=== PATIENT | female | born 1995 | race Caucasian/White ===

== ENCOUNTER 2023-10-19 21:14 | Observation (INO) | payer OTHER, SELFPAY ==
[2023-10-19 23:29] LABS: Bilirubin Negative (Negative); Blood, Urine Negative (Negative); CAUTI Indications for Culture Pelvic or flank pain; Calcium Oxalate Crystals 4+ HPF (None Seen); Clarity Turbid (Clear); Glucose, Urine (Dipstick) Normal (Negative); Ketone, Urine Negative (Negative); Leukocyte 75 Leu/uL (Negative); Nitrite Negative (Negative); Protein, Urine (Dipstick) 70 mg/dL (Neg-Trace); Specific Gravity, Urine 1.041 (1.002-1.036); WBC/HPF 21-50 HPF (0-3)
[2023-10-19 23:30] LABS: Bacteria/HPF 1+ HPF (None Seen)
[2023-10-19 23:32] LABS: Urine Culture Reflex Yes Yes
[2023-10-19] MEDS ORDERED: Dicyclomine 20 MG/2 ML VIAL ONE (23:36)
[2023-10-19 23:38] LABS: #Basophils 0.1 thou/uL (0.0-0.2); #Eosinphils 0.1 thou/uL (0.0-0.7); #Monocytes 0.4 thou/uL (0.11-0.59); #Neutrophils 9.6 thou/uL (1.40-6.50); %Basophils 0.5 % (0.0-1.0); %Eosinophils 0.6 % (0.0-10.0); %Lymphocytes 8.8 % (21.0-51.0); %Monocytes 3.4 % (0.0-10.0); %Neutrophils 86.5 % (42.0-75.0); Hematocrit 39.1 % (36.0-47.0); Hemoglobin 12.9 g/dL (12.0-16.0); Mean Corpuscular Hemoglobin 28.9 pg (27.0-31.0); Mean Corpuscular Volume 87.5 fl (78.0-98.0); Platelet Count 314 10x3/uL (130-400); Red Blood Cell (RBC) Count 4.47 mill/uL (4.20-5.40)
[2023-10-19 23:45] LABS: BHCG - Serum Negative (NEGATIVE); Pregs Control Background? CLEAR/WHITE (CLR/WHITE); Pregs Control Bar Appear? YES (CONTROL BAR)
[2023-10-19 23:57] LABS: ALT (SGPT) 54 U/L (8-55); AST (SGOT) 77 U/L (5-34); Albumin 4.4 g/dL (3.5-5.0); Alkaline Phosphatase 53 U/L (40-110); Anion Gap 12 mmol/L (10-20); BUN (Urea Nitrogen) 14 mg/dL (7.0-18.7); Calc. Creatinine Clearance 0 mL/min (70-130); Calcium 9.8 mg/dL (7.8-10.44); Carbon Dioxide 27 mmol/L (22-29); Chloride 105 mmol/L (98-107); Estimated GFR 88; Globulin 3.3 g/dL (2.4-3.5); Glucose 122 mg/dL (70-105); Lipase 27 U/L (8-78); Potassium 4.7 mmol/L (3.5-5.1); Protein, Total 7.7 g/dL (6.0-8.3); Sodium 139 mmol/L (136-145)
[2023-10-20] MEDS ORDERED: LevoFLOXacin 750 mg/D5W 150 ml Premix Bag ONE (00:22)
[2023-10-20] MEDS ORDERED: Morphine 4 MG/ML VIAL ONE (00:22)
[2023-10-20] MEDS ORDERED: Ondansetron PF 4 MG/2 ML Vial ONE ×2 (00:22→07:27)
[2023-10-20] MEDS ORDERED: Ondansetron ODT 4 MG TAB SL PRN (03:00)
[2023-10-20] MEDS ORDERED: Ondansetron PF 4 MG/2 ML Vial IVP PRN (03:00)
[2023-10-20] MEDS ORDERED: Acetaminophen 325 MG TAB PO PRN (03:00)
[2023-10-20] MEDS: Sodium Chloride 0.9% 1,000 ML IV SCH ×2 (03:00→08:54)
[2023-10-20 03:57] VITALS: BMI 33.4
[2023-10-20] MEDS: Morphine 2 MG/ML VIAL SLOW IVP PRN (05:10)
[2023-10-20] MEDS ORDERED: HYDROmorphone 0.5 MG/0.5 ML SYRINGE ONE (06:48)
[2023-10-20] MEDS ORDERED: EPINEPHrine 1 MG/ML VIAL ONE (06:56)
[2023-10-20] MEDS ORDERED: Bupivacaine 0.25% HCL 30 ML VIAL ONE (06:57)
[2023-10-20] MEDS ORDERED: hydrALAZINE 20 MG/ML VIAL SLOW IVP PRN (07:06)
[2023-10-20] MEDS ORDERED: LevoFLOXacin D5W 500 mg (100 mL) BAG ONE (07:21)
[2023-10-20] MEDS ORDERED: Midazolam HCl 2 mg/2 ml Vial ONE (07:23)
[2023-10-20] MEDS ORDERED: Famotidine/PF 20 mg/2ml Vial ONE (07:23)
[2023-10-20] MEDS ORDERED: Ketorolac Tromethamine 30 MG (1 mL) VIAL ONE ×2 (07:27→09:13)
[2023-10-20] MEDS ORDERED: SUCCINYLCHOLINE/SOD CL,ISO/PF 200 MG/10 ML SYRINGE FS ONE (07:27)
[2023-10-20] MEDS ORDERED: Dexamethasone 20 MG/5 ML VIAL ONE (07:27)
[2023-10-20] MEDS ORDERED: Lidocaine 2% PF 5 ML VIAL ONE (07:27)
[2023-10-20] MEDS ORDERED: PROPOFOL 20 ML ONE (07:28)
[2023-10-20] MEDS ORDERED: fentaNYL 50 mcg/mL 1 mL Vial ONE ×4 (07:28→09:33)
[2023-10-20] MEDS ORDERED: SUGAMMADEX SODIUM 200 MG/2 ML VIAL ONE (07:29)
[2023-10-20] MEDS ORDERED: Rocuronium Bromide 50 MG/5 ML VIAL ONE (07:29)
[2023-10-20] MEDS ORDERED: Glycopyrrolate 0.2 MG/ML 5 ML SYRINGE ONE (08:01)
[2023-10-20] MEDS: Ketorolac Tromethamine 30 MG (1 mL) VIAL IVP SCH (08:54)
[2023-10-20] MEDS ORDERED: Acetaminophen 325 MG TAB PO SCH (09:00)
[2023-10-20] MEDS ORDERED: Promethazine HCl 25 MG/ML VIAL IM PRN (09:05)
[2023-10-20] MEDS ORDERED: Ondansetron HCl/PF 4 MG/2 ML Vial IVP PRN (09:05)
[2023-10-20] MEDS ORDERED: Ketorolac Tromethamine 30 MG/ML VIAL IVP PRN (09:05)
[2023-10-20] MEDS: Acetaminophen 500 MG TAB PO SCH (09:20)
[2023-10-20] MEDS: LevoFLOXacin 500 mg/D5W 500 MG in Premix 1 BAG IVPB SCH (09:20)
[2023-10-20] MEDS: Famotidine 20 MG TAB PO SCH (09:21)
[2023-10-20] MEDS: Scopolamine 1 mg/72 hour Patch TD SCH (10:02)
[2023-10-20] MEDS: traMADol HCl 50 MG TAB PO PRN (10:16)
[2023-10-20] MEDS ORDERED: Sevoflurane 250 ML INH ANEST BOTTLE ONE (11:03)
[2023-10-20] MEDS: Morphine 4 MG/ML VIAL SLOW IVP PRN (11:53)
[2023-10-20] MEDS: HYDROcodone/Acetaminophen 7.5/325 mg Tablet PO PRN (14:25)
[2023-10-20] MEDS: Ketorolac Tromethamine 30 MG (1 mL) VIAL IVP PRN (19:35)
[2023-10-20] MEDS: Enoxaparin 40 MG (0.4 mL) SYRINGE SC SCH (21:00)
[2023-10-21] MEDS: LevoFLOXacin 500 mg/D5W 500 MG in Premix 1 BAG IVPB SCH (09:07)
[2023-10-21 10:20] VITALS: BP 120/78; TEMP 98.2
== END 2023-10-21 13:09 | disposition home or self-care (01) ==
LOC: ERS 21:14 → SURG B 10-20 02:06
PROVIDERS: ADMIT Specialist; ATTEND Specialist
PROC: 0FT44ZZ Resection of Gallbladder, Percutaneous Endoscopic Approach (ICD-10-PCS; principal; 2023-10-21)
DX: K80.12 Calculus of gallbladder with acute and chronic cholecystitis without obstruction (principal); F17.210 Nicotine dependence, cigarettes, uncomplicated; Z79.899 Other long term (current) drug therapy
CPT/HCPCS: 76705; 80053; 81001; 83690; 84703; 85025; 87086; 88304; 93005; 96366; 96372; 96374; 96375; 96376; C1713; G0378; J0171; J0665; J1100; J1170; J1650; J1885; J1956; J2001; J2250; J2270; J2272; J2405; J2704; J3010; J7050; S0028

== ENCOUNTER 2025-04-21 07:52 | Outpatient (CLI) | payer OTHER | END 2025-04-21 07:53 | disposition home or self-care (01) | LOC: BICRAD 07:52 | PROVIDERS: ATTEND Student in an Organized Health Care Education/Training Program | DX: S93.401A Sprain of unspecified ligament of right ankle, initial encounter (principal) ==